=== PATIENT | male | born 1975 | race African-American/Black ===

== ENCOUNTER 2018-08-28 16:16 | Emergency (ER) | payer OTHER ==
[~2018-08-28] VITALS: Ht 185.4 cm; Wt 118.0 kg
[~2018-08-28 16:16] MED LIST: CARB200T PO
[2018-08-28 16:26] VITALS: BP 160/101
== END 2018-08-28 18:46 | disposition home or self-care (01) ==
LOC: ER 16:16
DX: S61.411D Laceration without foreign body of right hand, subsequent encounter (principal); F17.200 Nicotine dependence, unspecified, uncomplicated; F12.10 Cannabis abuse, uncomplicated; W26.0XXD Contact with knife, subsequent encounter
CPT/HCPCS: 99283

== ENCOUNTER 2023-06-10 14:29 | Emergency (ER) | payer OTHER ==
[~2023-06-10] VITALS: Ht 185.4 cm; Wt 108.0 kg
[2023-06-10 14:41] VITALS: O2SAT 99
[2023-06-10 15:11] LABS: BASOPHILS % 0.7 % (0.0-2.0); EOSINOPHILS % 1.3 % (0.0-5.0); HEMATOCRIT. 44.1 % (42.0-52.0); HEMOGLOBIN. 15.1 g/dL (14.0-18.0); LYMPHOCYTES % 44.2 % (20.0-50.0); MEAN CORPUSCULAR HEMOGLOBIN 37.9 pg (28.0-32.0); MEAN CORPUSCULAR HGB CONC 34.4 g/dL (31.0-37.0); MEAN CORPUSCULAR VOLUME 110.3 fL (80.0-94.0); MEAN PLATELET VOLUME 7.5 fl (7.4-10.4); MONOCYTES % 11.6 % (2.0-8.0); NEUTROPHILS % 42.2 % (40.0-76.0); PLATELET 221 x1000/uL (130-400); RED CELL DISTRIBUTION WIDTH 14.4 % (11.6-14.6); WHITE BLOOD COUNT 3.8 x1000/uL (4.5-11.0)
[2023-06-10 15:15] LABS: ADD RBC MORPHOLOGY YES; DIFFERENTIAL COMMENT 1
[2023-06-10 15:18] LABS: CHLORIDE 102 mEq/L (98-107); INDEX HEMOLYSI 1 (1-3); INDEX ICTERIC 1 (1-4); INDEX LIPEMIC 1 (1-3); POTASSIUM 3.4 mEq/L (3.5-5.1); SODIUM 139 mEq/L (136-145)
[2023-06-10 15:19] LABS: PARTIAL THROMBOPLASTIN TIME 27.3 sec (23.4-31.0); PROTHROMBIN TIME 10.5 sec (9.6-11.0)
[2023-06-10 15:30] LABS: ALANINE AMINOTRANSFERASE 52 IU/L (13-61); ALBUMIN 3.7 g/dL (3.4-5.0); ASPARTATE AMINOTRANSFERASE 128 IU/L (15-37); BILIRUBIN TOTAL 0.8 mg/dL (0.1-1.0); CALCIUM 8.8 mg/dL (8.5-10.1); CARBON DIOXIDE 27 mEq/L (21-32); CREATININE 0.8 mg/dL (0.6-1.3); GLUCOSE 102 mg/dL (70-105); NT PRO B-TYPE NATRIURETIC PEP 13 pg/mL (5-125); TROPONIN I HIGH SENSITIVITY 8 ng/L (<78); UREA NITROGEN BLOOD 6 mg/dL (7-21)
[2023-06-10 16:31] LABS: PLATELET ESTIMATE NORMAL
[2023-06-10 16:32] LABS: ANISOCYTOSIS 1+
[2023-06-10] MEDS: ASPIRIN 325MG TABLET PO NR (20:09)
[2023-06-10 21:37] VITALS: BP 147/98; PULSE 85; RESP 19; TEMP 98.7
== END 2023-06-10 21:42 | disposition left against medical advice (07) ==
LOC: ER 14:29
DX: R07.89 Other chest pain (principal); R55 Syncope and collapse; Z86.59 Personal history of other mental and behavioral disorders
CPT/HCPCS: 36415; 71045; 80053; 83880; 84484; 85025; 85379; 93005; 99285

== ENCOUNTER 2024-09-17 16:44 | Emergency (ER) | payer OTHER ==
[~2024-09-17] VITALS: Ht 185.4 cm; Wt 113.0 kg
[2024-09-17 16:54] VITALS: O2SAT 99
[2024-09-17] MEDS: IBUPROFEN 600MG TABLET PO ONE (19:05)
[2024-09-17] MEDS: LEVETIRACETAM 500MG PREMIX 100 ML IV ONE ×2 (19:05→19:44)
[2024-09-17] MEDS: TETANUS, DIPHTHERIA, PERTUSSIS VAC/PF 0.5ML (>10YR OLD) IM ONE (19:06)
[2024-09-17 19:13] LABS: ADD RBC MORPHOLOGY YES; BASOPHILS % 0.2 % (0.0-2.0); DIFFERENTIAL COMMENT 1; HEMATOCRIT. 41.1 % (42.0-52.0); HEMOGLOBIN. 14.2 g/dL (14.0-18.0); MEAN CORPUSCULAR HEMOGLOBIN 38.1 pg (28.0-32.0); MEAN CORPUSCULAR HGB CONC 34.6 g/dL (31.0-37.0); MEAN CORPUSCULAR VOLUME 110.4 fL (80.0-94.0); MEAN PLATELET VOLUME 7.3 fl (7.4-10.4); MONOCYTES % 11.8 % (2.0-8.0); PLATELET 210 x1000/uL (130-400); RED BLOOD CELL COUNT 3.72 mill/uL (4.7-6.1); WHITE BLOOD COUNT 6.6 x1000/uL (4.5-11.0)
[2024-09-17] MEDS: LACTATED RINGERS 1,000 ML IV SCH (19:13)
[2024-09-17 19:29] LABS: CHLORIDE 104 mEq/L (98-107); SODIUM 142 mEq/L (136-145)
[2024-09-17 19:30] LABS: CALCIUM 8.9 mg/dL (8.7-10.4); CARBON DIOXIDE 29 mEq/L (21-32)
[2024-09-17 19:35] LABS: CREATININE 0.9 mg/dL (0.6-1.3); GLUCOSE 100 mg/dL (70-105); UREA NITROGEN BLOOD 8 mg/dL (9-23)
[2024-09-17 19:37] LABS: ALANINE AMINOTRANSFERASE 26 IU/L (10-49); ASPARTATE AMINOTRANSFERASE 57 IU/L (<34); BILIRUBIN TOTAL 1.6 mg/dL (0.1-1.0); PROTEIN TOTAL 6.7 g/dL (6.0-8.3)
[2024-09-17 19:59] LABS: PLATELET ESTIMATE NORMAL
[2024-09-17] MEDS: POTASSIUM CHLORIDE 20MEQ/PACKET PO ONE (20:23)
[2024-09-17] MEDS ORDERED: AMOX1TAB16 MT (20:47)
[2024-09-17] MEDS ORDERED: IBUP-2029 MT (20:47)
[2024-09-17 21:10] VITALS: BP 141/98; PULSE 95; RESP 18; TEMP 36.94740; O2SAT 100
== END 2024-09-17 21:31 | disposition home or self-care (01) ==
LOC: ER 16:44
DX: G40.409 Other generalized epilepsy and epileptic syndromes, not intractable, without status epilepticus (principal); S02.832A Fracture of medial orbital wall, left side, initial encounter for closed fracture; S02.2XXA Fracture of nasal bones, initial encounter for closed fracture; F12.10 Cannabis abuse, uncomplicated; E87.6 Hypokalemia; W18.30XA Fall on same level, unspecified, initial encounter; Y93.89 Activity, other specified; Y92.89 Other specified places as the place of occurrence of the external cause; Y99.8 Other external cause status
CPT/HCPCS: 99285; 70450; 96365; 71045; 80053; 85025; 36415; 73130; 70486; 72125; 90715; 93005; 90471; J1953

== ENCOUNTER 2025-01-03 12:33 | Emergency (ER) | payer OTHER ==
[~2025-01-03] VITALS: Ht 190.5 cm; Wt 130.0 kg
[~2025-01-03 12:33] MED LIST changes: +AMOX1TAB16 MT; +IBUP-2029 MT
[2025-01-03 12:35] VITALS: O2SAT 97
[2025-01-03 12:58] VITALS: TEMP 37.1
[2025-01-03 13:11] LABS: CHLORIDE 95 mEq/L (98-107); POTASSIUM 2.9 mEq/L (3.5-5.1); SODIUM 136 mEq/L (136-145)
[2025-01-03 13:12] LABS: CALCIUM 8.7 mg/dL (8.7-10.4); CARBON DIOXIDE 23 mEq/L (21-32)
[2025-01-03 13:17] LABS: CREATININE 0.8 mg/dL (0.6-1.3); GLUCOSE 136 mg/dL (70-105); UREA NITROGEN BLOOD 8 mg/dL (9-23)
[2025-01-03 13:19] LABS: ALANINE AMINOTRANSFERASE 14 IU/L (10-49); ALBUMIN 3.6 g/dL (3.2-4.8); ASPARTATE AMINOTRANSFERASE 34 IU/L (<34); BASOPHILS % 0.2 % (0.0-2.0); BILIRUBIN DIRECT 1.1 mg/dL (<=3.0); EOSINOPHILS % 0.2 % (0.0-5.0); HEMATOCRIT. 42.2 % (42.0-52.0); HEMOGLOBIN. 14.3 g/dL (14.0-18.0); LYMPHOCYTES % 18.9 % (20.0-50.0); MEAN CORPUSCULAR HEMOGLOBIN 37.5 pg (28.0-32.0); MEAN CORPUSCULAR HGB CONC 33.8 g/dL (31.0-37.0); MEAN CORPUSCULAR VOLUME 111.1 fL (80.0-94.0); MEAN PLATELET VOLUME 8.7 fl (7.4-10.4); MONOCYTES % 13.6 % (2.0-8.0); NEUTROPHILS % 67.1 % (40.0-76.0); PLATELET 113 x1000/uL (130-400); RED CELL DISTRIBUTION WIDTH 13.9 % (11.6-14.6); WHITE BLOOD COUNT 5.3 x1000/uL (4.5-11.0)
[2025-01-03 13:20] LABS: BILIRUBIN TOTAL 2.8 mg/dL (0.1-1.0); PROTEIN TOTAL 6.6 g/dL (6.0-8.3)
[2025-01-03] MEDS: LEVETIRACETAM 1000MG PREMIX 100 ML IV ONE (13:21)
[2025-01-03 13:23] LABS: ETHANOL BLOOD < 10 mg/dL (<10)
[2025-01-03 13:32] LABS: ADD RBC MORPHOLOGY YES; DIFFERENTIAL COMMENT 1
[2025-01-03 14:12] LABS: PLATELET ESTIMATE SLIGHTLY DECREASED
[2025-01-03] MEDS: ACETAMINOPHEN 325MG TABLET PO ONE (15:36)
[2025-01-03] MEDS: POTASSIUM CHLORIDE 20MEQ TABLET SR PO ONE (15:36)
[2025-01-03 17:02] VITALS: BP 133/88; PULSE 89; RESP 20; O2SAT 96
== END 2025-01-03 18:55 | disposition home or self-care (01) ==
LOC: ER 12:33
DX: G40.909 Epilepsy, unspecified, not intractable, without status epilepticus (principal); Z79.899 Other long term (current) drug therapy
CPT/HCPCS: 80076; 80048; 80320; 85025; 36415; 71045; 70450; 93005; 96365; 99285; J1953; G0480